=== PATIENT | male | born 1990 | race Caucasian/White ===

== ENCOUNTER 2020-05-03 08:40 | Emergency (ER) | payer OTHER ==
[~2020-05-03] VITALS: Ht 187.9 cm; Wt 67.3 kg
--- NOTE | 2020-05-03 08:58 | ED Upper Extremity ---
General Chief Complaint: Laceration Stated Complaint: WC RT THUMB LAC Source: patient Exam Limitations: no limitations History of Present Illness Date Seen by Provider: May 03, 2020 Time Seen by Provider: 08:50 Initial Comments cut to right thumb w his knife while at work, cutting quan. Tetanus UTD Onset: just prior to arrival Severity: moderate Allergies and Home Medications Allergies Coded Allergies: No Known Drug Allergies (Unverified , 05/03/20) Patient Home Medication List Home Medication List Reviewed: Yes Review of Systems Constitutional: No fever, No weakness Musculoskeletal: other (R thumb injury/ lac) Skin: other (R thumb laceration.) Psychiatric/Neurological: Numbness (distal thumb); Denies Pre-Existing Deficit, Denies Weakness Past [id number]-Vcyfqb Hx Past Med/Social Hx: Reviewed Nursing Past Med/Soc Hx Patient Social History Recent Foreign Travel: No Contact w/Someone Who Travel: No Physical Exam Vital Signs Vital Signs - First Documented 05/03/20 08:45 Temp 36.1 Pulse 83 Resp 20 B/P (MAP) 140/83 (102) Pulse Ox 98 O2 Delivery Room Air Capillary Refill : Height, Weight, BMI Height: '" Weight: lbs. oz. kg; BMI Method: General Appearance: WD/WN, no apparent distress Hand: normal ROM, Right, deformity (nail), laceration (1.5 cm lac, through distal thumb and nail, longitudinally), nail injury (distal nail, horizontal lac.) Procedures/Interventions Wound Location: Upper Extremities Other Wound Location distal thumb- right Wound Length (cm): 1.5 Wound's Depth, Shape: flap (through distal nail and thumb. flap) Wound Explored: clean Anesthesia: 1% Lidocaine Volume Anesthetic (ccs): 4 Suture: Ethlion Suture Size: 5-0 Number of Sutures: 3 Sterile Dressing Applied?: Yes Progress/Results/Core Measures Results/Orders My Orders Orders - NICOLE TELLO DO Lidocaine 1% Inj 20 Ml (Xylocaine 1% Inj (05/03/20 09:00) Medications Given in ED Current Medications Medications Dose Ordered Sig/Marlyn Route Start Time Stop Time Status Last Admin Dose Admin Lidocaine HCl 20 ml ONCE ONCE INJ 05/03/20 09:00 05/03/20 09:01 DC 05/03/20 08:57 20 ML Vital Signs/I&O 05/03/20 08:45 Temp 36.1 Pulse 83 Resp 20 B/P (MAP) 140/83 (102) Pulse Ox 98 O2 Delivery Room Air Departure Impression Primary Impression: Laceration of thumb Qualified Codes: S61.111A - Laceration without foreign body of right thumb with damage to nail, initial encounter Disposition: HOME, SELF-CARE Condition: Improved Departure-Patient Inst. Referrals: NO,LOCAL PHYSICIAN (PCP/Family) Primary Care Physician Patient Instructions: Laceration Repair With Stitches (DC) Add. Discharge Instructions: Follow up with PCP or Worker's comp doctor in 10 days for suture removal and wound check All discharge instructions reviewed with patient and/or family. Voiced understanding. NICOLE TELLO DO May 03, 2020 08:58
[2020-05-03] MEDS ORDERED: LIDOCAINE 1% INJ 20 ML 20 ML VIAL INJ ONE (09:00)
--- NOTE | 2020-05-03 09:10 | NUR ---
Pt's elroy gonzalezher called and patient permitted nurse giving update.
[2020-05-03 10:15] VITALS: BP 140/83
--- NOTE | 2020-05-03 10:15 | NUR ---
Pt discharged after 3 sutures of 5-0 Ethilon placed for repair work of right thumb. Pt declined Tetanus, pt states he does not like needles and was not desiring more beyond local.
== END 2020-05-03 10:15 | disposition home or self-care (01) ==
LOC: ER FS 08:42
DX: S61.111A Laceration without foreign body of right thumb with damage to nail, initial encounter (principal); W26.0XXA Contact with knife, initial encounter
CPT/HCPCS: 12001